=== PATIENT | female | born 1995 | race Caucasian/White ===

== ENCOUNTER 2020-03-19 16:39 | Emergency (ER) | payer OTHER, SELFPAY ==
--- NOTE | 2020-03-19 16:43 | ED.GENADULT ---
HPI - General Adult General Stated complaint: Dizziness/Disoreiented Time Seen by Provider: 03/19/20 16:43 Source: patient Mode of arrival: ambulatory Limitations: no limitations Related Data Allergies Allergy/AdvReac Type Severity Reaction Status Date / Time No Known Allergies Allergy Verified 03/07/19 09:37 Review of Systems Review of Systems: Narrative: CONSTITUTIONAL: Denies fever, chills, or sweats. EYES: Denies visual changes, redness, or discharge. ENT: Denies rhinorrhea, congestion, sore throat, or otalgia. CARDIOVASCULAR: Denies chest pain, palpitations, or edema. RESPIRATORY: Denies cough or dyspnea. GASTROINTESTINAL: Denies abdominal pain, nausea, vomiting, or diarrhea. GENITOURINARY: Denies dysuria or hematuria. SKIN: Denies rash or itching. MUSCULOSKELETAL: Denies back pain, joint pain, or myalgia. NEUROLOGIC: Denies headache, numbness, or weakness. PSYCHIATRIC: Denies anxiety or depression. PMFSH Comments At the time of my signature I agree with nursing past medical history, surgical, social, and family history. There is no relevant family history pertinent to the presenting complaint. Exam Narrative: Exam Narrative: GENERAL: Well-appearing, well-nourished, and in no acute distress. HEAD: Normocephalic, atraumatic. EYES: PERRLA and EOMI. ENT: Nares clear, no rhinorrhea or epistaxis. Mucous membranes moist. NECK: Supple. No lymphadenopathy CHEST: Clear to auscultation. No respiratory distress. HEART: Regular rate and rhythm. No murmur heard. Normal peripheral pulses. ABDOMEN: Soft, nontender, nondistended, normal active bowel sounds. EXTREMITIES: Normal range of motion. No edema. SKIN: Warm, dry, no rash. NEURO: No focal deficits. Alert and oriented x3. Course Vital Signs Vital signs: Vital signs reviewed. Medical Decision Making Differential Diagnosis Differential Diagnosis: Differential diagnosis: Critical Care Time Critical Care Time Critical Care Time: No Discharge Plan Discharge Prescriptions: No Action benzonatate [Tessalon Perles] 100 mg capsule 100 mg PO TID PRN (Reason: cough) Qty: 20 RF: 0 methylprednisolone [Medrol (Poncho)] 4 mg tablets,dose pack See Rx Instructions .ROUTE .COMPLEX Qty: 21 RF: 0 albuterol sulfate 90 mcg/actuation HFA aerosol inhaler 2 puff INHALATION QID PRN (Reason: shortness of breath or wheezing) Qty: 8 RF: 0
== END 2020-03-19 16:55 | disposition left against medical advice (07) ==
LOC: EXPBETH 16:47
PROVIDERS: Emergency Provider Nurse Practitioner Family
DX: Z53.21 Procedure and treatment not carried out due to patient leaving prior to being seen by health care provider (principal)
CPT/HCPCS: 99199

== ENCOUNTER 2020-12-28 19:10 | Emergency (ER) | payer OTHER, SELFPAY ==
[2020-12-28 19:16] VITALS: BP 123/76; PULSE 98; RESP 18; TEMP 37.4; O2SAT 100
--- NOTE | 2020-12-28 19:28 | ED.URI ---
HPI - URI/Sore Throat General Chief Complaint: Upper Respiratory Infection Stated Complaint: Sore Throat, Congestion, irritated Eyes Time Seen by Provider: 12/28/20 19:28 Source: patient and RN notes reviewed History of Present Illness HPI Narrative: Patient is a 25-year-old female who presents the urgent care with complaints of bilateral eye irritation, sore throat and congestion. Patient states it started about 4 5 days ago. States that she has not had a Covid vaccine but she has not worried about Covid because she does not leave her house . Patient denies of any fever, nausea, vomiting. Denies of any use of rhqj-eek-kqormrd medication for symptoms. No other acute complaints. No acute distress noted. Patient read the plan of care. Some parts of this dictation were generated by voice recognition software and may contain typographical and/or grammatical inaccuracies. Related Data Allergies Allergy/AdvReac Type Severity Reaction Status Date / Time No Known Allergies Allergy Verified 12/28/20 19:31 Review of Systems Review of Systems: CONSTITUTIONAL: Denies fever, chills, or sweats. EYES: Reports of bilateral eye irritation and drainage ENT: Reports of nasal congestion, sore throat CARDIOVASCULAR: Denies chest pain, palpitations, or edema. RESPIRATORY: Denies cough or dyspnea. GASTROINTESTINAL: Denies abdominal pain, nausea, vomiting, or diarrhea. GENITOURINARY: Denies dysuria or hematuria. SKIN: Denies rash or itching. MUSCULOSKELETAL: Denies back pain, joint pain, or myalgia. NEUROLOGIC: Denies headache, numbness, or weakness. All other systems reviewed are negative, except as documented in HPI. PMFSH Comments At the time of my signature, I reviewed and agree with the nursing past medical, surgical, social, and family history. There is no relevant family history pertinent to the patient complaint. Exam Narrative: GENERAL: This is a well-nourished, well-developed patient, in no apparent distress. HEAD: normocephalic, atraumatic. EYES: PERRL. Sclera clear/white. Vision is grossly intact. Mild bilateral injected conjunctiva with scant yellow discharge/matting EARS: External ears normal, auditory canals clear and without drainage, TMs normal without perforation. Hearing grossly intact. NOSE: External nose normal with no obvious nasal discharge, nares without redness, clear rhinorrhea. THROAT: Mucous membranes moist. Mild postnasal drainage with moderate erythema noted posterior oropharynx without exudate or ulceration. NECK: Neck supple CARDIOVASCULAR: Regular rate and rhythm without murmurs, gallops, or rubs. RESPIRATORY: Clear to auscultation. Breath sounds equal bilaterally. No wheezes, rales, or rhonchi. SKIN: warm, intact with no suspicious lesions or rash, good texture and turgor. NEURO: awake, alert, and oriented to person, place and time. There were no obvious focal neurologic abnormalities. EXTREMITIES: No clubbing, cyanosis, or edema. Course Vital Signs Vital signs: Vital Signs Temperature 99.3 F 12/28/20 19:16 Pulse Rate 98 12/28/20 19:16 Respiratory Rate 18 12/28/20 19:16 Blood Pressure 123/76 12/28/20 19:16 Pulse Oximetry 100 12/28/20 19:16 Temperature 99.3 F 12/28/20 19:16 Pulse Rate 98 12/28/20 19:16 Respiratory Rate 18 12/28/20 19:16 Blood Pressure 123/76 12/28/20 19:16 Pulse Oximetry 100 12/28/20 19:16 Reviewed MDM - URI/Sore Throat MDM Narrative Medical decision making narrative: Reviewed lab results with the patient. She is aware that strep swab was negative. Educated patient on culture and we will call within 72 hours if culture is positive and antibiotics are necessary. Advised the patient to use an xozd-zua-kjzlqut antihistamine such as Claritin/Zyrtec/Benadryl in conjunction with Flonase nasal spray. Do not sleep with the windows open or a fan on. Use a humidifier at night. Use Tylenol/ibuprofen as needed. Use eyedrops to bilateral eyes, wiping the appli
== END 2020-12-28 19:40 | disposition home or self-care (01) ==
PROVIDERS: Emergency Provider Nurse Practitioner Family
DX: J02.9 Acute pharyngitis, unspecified (principal); H10.33 Unspecified acute conjunctivitis, bilateral
CPT/HCPCS: 87081; 87880; 99213; G0463

== ENCOUNTER 2021-09-07 10:40 | Emergency (ER) | payer OTHER, SELFPAY ==
[2021-09-07 10:45] VITALS: BP 111/81; PULSE 120; RESP 16; TEMP 37; O2SAT 98
--- NOTE | 2021-09-07 12:08 | ED.SKABFB ---
HPI - Skin/Abscess/Foreign Bdy General Chief complaint: Skin/Abscess/Foreign Body Stated complaint: rash on face Time Seen by Provider: 09/07/21 12:09 Source: patient and RN notes reviewed Mode of arrival: ambulatory Limitations: no limitations History of Present Illness HPI narrative: 26-year-old female presents with concern for rash. She reports she was treated for poison hcan several weeks ago with a steroid taper. Reports the rash resolved, however 2 days after she is the steroid she began having a rash again. She reports her original rash was pretty severe, causing scarring as it healed. She reports this current rash is itchy, is currently on her face, neck, abdomen. Reports she has been using topical Benadryl cream without relief. She denies fullness, swollen tongue breathing. MD complaint: rash Related Data Allergies Allergy/AdvReac Type Severity Reaction Status Date / Time No Known Allergies Allergy Verified 09/07/21 11:14 Review of Systems Review of Systems: CONSTITUTIONAL: Denies malaise, chills, sweats, or fever. EYES: Denies redness, or discharge. ENT: Denies rhinorrhea, congestion, swollen lips, swollen tongue CARDIOVASCULAR: Denies chest pain, palpitations, or edema. RESPIRATORY: Denies cough or dyspnea. GASTROINTESTINAL: Denies abdominal pain, nausea, vomiting SKIN: Reports itchy rash on her neck, face, abdomen MUSCULOSKELETAL: Denies joint pain or myalgia. NEUROLOGIC: Denies headache. All systems reviewed & are unremarkable except as noted in HPI and below PMFSH Comments At time of signature, agree with nursing past medical, surgical, social and family history. There is no relevant family history pertinent to the presenting complaint Exam Narrative: GENERAL: Well-appearing, well-nourished, and in no acute distress. HEAD: Normocephalic, atraumatic. EYES: PERRLA, conjunctivae clear, and EOMI. ENT: Mucous membranes moist. Oropharynx without edema, erythema or lesions. NECK: Supple. No lymphadenopathy CHEST: Clear to auscultation. No respiratory distress. HEART: Regular rate and rhythm. SKIN: Warm, dry. Patches of erythematous papules and erythematous plaque without vesicles noted to the face, neck, abdomen NEURO: Alert and oriented x3. PSYCH: Normal mood and affect Course Course Emergency Course: Patient is aware of diagnosis, understands and agrees to treatment plan. Anticipatory guidance given. Patient agrees to follow-up as directed and is aware of reasons to seek care at the emergency department. Portions of this record may have been created with voice recognition software Level of Care: Express Care Visit Vital Signs Vital signs: Vital Signs Temperature 98.6 F 09/07/21 10:45 Pulse Rate 120 H 09/07/21 10:45 Respiratory Rate 16 09/07/21 10:45 Blood Pressure 111/81 09/07/21 10:45 Pulse Oximetry 98 09/07/21 10:45 Oxygen Delivery Room Air 09/07/21 10:45 Temperature 98.6 F 09/07/21 10:45 Pulse Rate 120 H 09/07/21 10:45 Respiratory Rate 16 09/07/21 10:45 Blood Pressure 111/81 09/07/21 10:45 Pulse Oximetry 98 09/07/21 10:45 Oxygen Delivery Room Air 09/07/21 10:45 Reviewed. MDM - Skin/Abscess/Foreign Bdy MDM Narrative Medical decision making narrative: Does not appear at this time to be erythema multiforme, bullous, SJS, TEN; no evidence at this time to suggest RMSF, endocarditis or Lyme disease; patient looks well, nontoxic and is tolerating oral intake; no neurologic signs or symptoms; no headache, photophobia or neck pain; afebrile; appropriate for initial outpatient treatment; discussed the importance of follow-up, patient agrees; question, viral exanthema, contact dermatitis, allergic dermatitis, eczema, urticaria, tinea, shingles. No soft palate or uvula edema, no tongue, lip edema or other mucosal involvement, no respiratory compromise, no stridor, no wheezing, no wheezing, no history of syncope, no hypotension, no nausea, vomiting, or diarrhea. I
== END 2021-09-07 12:21 | disposition home or self-care (01) ==
PROVIDERS: Emergency Provider Nurse Practitioner
DX: L24.7 Irritant contact dermatitis due to plants, except food (principal)
CPT/HCPCS: 99213; G0463

== ENCOUNTER 2021-10-05 13:38 | Emergency (ER) | payer OTHER, SELFPAY ==
--- NOTE | 2021-10-05 13:40 | ED.SKABFB ---
HPI - Skin/Abscess/Foreign Bdy General Chief complaint: Skin/Abscess/Foreign Body Stated complaint: Rash Time Seen by Provider: 10/05/21 13:40 Source: patient and RN notes reviewed History of Present Illness HPI narrative: Patient is a 26-year-old female who presents the urgent care with complaints of a rash of the chest, bilateral arms and knees. Patient states its been ongoing for over 1 month and she has been seen in the emergency room and at our facility for the same issue. Patient states that when she stops taking the steroid the rash comes right back. Patient had been using the triamcinolone up until yesterday however she misplaced it. Patient has been using Benadryl cream without much relief. Denies of any new medications, detergents, creams or lotions. No one else in the home has the rash. No other acute complaints. No acute distress noted. Patient plan of care. Some parts of this dictation were generated by voice recognition software and may contain typographical and/or grammatical inaccuracies. Related Data Allergies Allergy/AdvReac Type Severity Reaction Status Date / Time No Known Allergies Allergy Verified 10/05/21 13:56 Review of Systems Review of Systems: CONSTITUTIONAL: Denies fever, chills, or sweats. EYES: Denies visual changes, redness, or discharge. ENT: Denies rhinorrhea, congestion, sore throat, or otalgia. CARDIOVASCULAR: Denies chest pain, palpitations, or edema. RESPIRATORY: Denies cough or dyspnea. GASTROINTESTINAL: Denies abdominal pain, nausea, vomiting, or diarrhea. GENITOURINARY: Denies dysuria or hematuria. SKIN: Reports of an itchy inflamed rash to the chest, bilateral arms and knees MUSCULOSKELETAL: Denies back pain, joint pain, or myalgia. NEUROLOGIC: Denies headache, numbness, or weakness. All other systems reviewed are negative, except as documented in HPI. PMFSH Comments At the time of my signature, I reviewed and agree with the nursing past medical, surgical, social, and family history. There is no relevant family history pertinent to the patient complaint. Exam Narrative: GENERAL: This is a well-nourished, well-developed patient, in no apparent distress. HEAD: normocephalic, atraumatic. EYES: PERRL. Sclera clear/white. Vision is grossly intact. EARS: External ears normal NOSE: External nose normal with no obvious nasal discharge, nares without redness, no rhinorrhea. THROAT: Mucous membranes moist NECK: Neck supple CARDIOVASCULAR: Regular rate and rhythm without murmurs, gallops, or rubs. RESPIRATORY: Clear to auscultation. Breath sounds equal bilaterally. No wheezes, rales, or rhonchi. SKIN: Raised rough erythemic papular dermatitis noted to the chest, bilateral upper arms and bilateral knees. Warm, intact with no suspicious lesions or rash, good texture and turgor. NEURO: awake, alert, and oriented to person, place and time. There were no obvious focal neurologic abnormalities. EXTREMITIES: No clubbing, cyanosis, or edema. Course Course Level of Care: Express Care Visit Vital Signs Vital signs: Vital Signs Temperature 99.1 F 10/05/21 13:46 Pulse Rate 94 10/05/21 13:46 Respiratory Rate 16 10/05/21 13:46 Blood Pressure 124/81 10/05/21 13:46 Pulse Oximetry 99 10/05/21 13:46 Oxygen Delivery Room Air 10/05/21 13:46 Temperature 99.1 F 10/05/21 13:46 Pulse Rate 94 10/05/21 13:46 Respiratory Rate 16 10/05/21 13:46 Blood Pressure 124/81 10/05/21 13:46 Pulse Oximetry 99 10/05/21 13:46 Oxygen Delivery Room Air 10/05/21 13:46 Reviewed MDM - Skin/Abscess/Foreign Bdy MDM Narrative Medical decision making narrative: Advised patient to use the prescription cream to the affected areas avoiding near the groin, eyes and underarms. Use Benadryl and Pepcid every 12 hours to help decrease the spread of the rash and inflammation. Complete the oral antibiotic regimen as prescribed and stay out of the sun while taking it. sure to eat and drink
[2021-10-05 13:46] VITALS: BP 124/81; PULSE 94; RESP 16; TEMP 37.3; O2SAT 99
== END 2021-10-05 14:11 | disposition home or self-care (01) ==
PROVIDERS: Emergency Provider Nurse Practitioner Family
DX: L25.9 Unspecified contact dermatitis, unspecified cause (principal)
CPT/HCPCS: 99213; G0463

== ENCOUNTER 2021-10-26 18:56 | Emergency (ER) | payer OTHER, SELFPAY ==
[2021-10-26 19:00] VITALS: BP 141/70; PULSE 103; RESP 20; TEMP 37.2; O2SAT 100
--- NOTE | 2021-10-26 19:16 | ED.UPPEXIN ---
HPI - Extremity Injury (Upper) General Chief Complaint: Extremity Injury, Upper Stated Complaint: Right Wrist Pain Time Seen by Provider: 10/26/21 19:06 Source: patient and RN notes reviewed History of Present Illness HPI narrative: Patient is a 26-year-old female who presents the urgent care with complaints of right wrist pain. Patient states is been ongoing for approximately 2 months and denies of any trauma or injury. Patient states in the last 3 or 4 days she has had increased pain. Patient states she works for [employer] and just recently started a new job with [employer] . Patient states that she has taken ibuprofen for the pain. Patient is right-hand dominant. No other acute complaints. No acute distress noted. Patient aware of the plan of care. Some parts of this dictation were generated by voice recognition software and may contain typographical and/or grammatical inaccuracies. Related Data Home Medications Medication Instructions Recorded Confirmed No Home Medications 10/26/21 10/26/21 Allergies Allergy/AdvReac Type Severity Reaction Status Date / Time No Known Allergies Allergy Verified 10/26/21 19:06 Review of Systems Review of Systems: CONSTITUTIONAL: Denies fever, chills, or sweats. EYES: Denies visual changes, redness, or discharge. ENT: Denies rhinorrhea, congestion, sore throat, or otalgia. CARDIOVASCULAR: Denies chest pain, palpitations, or edema. RESPIRATORY: Denies cough or dyspnea. GASTROINTESTINAL: Denies abdominal pain, nausea, vomiting, or diarrhea. GENITOURINARY: Denies dysuria or hematuria. SKIN: Denies rash or itching. MUSCULOSKELETAL: Reports of right wrist pain NEUROLOGIC: Denies headache, numbness, or weakness. All other systems reviewed are negative, except as documented in HPI. PMFSH Comments At the time of my signature, I reviewed and agree with the nursing past medical, surgical, social, and family history. There is no relevant family history pertinent to the patient complaint. Exam Narrative: GENERAL: This is a well-nourished, well-developed patient, in no apparent distress. HEAD: normocephalic, atraumatic. EYES: PERRL. Sclera clear/white. Vision is grossly intact. EARS: External ears normal NOSE: External nose normal with no obvious nasal discharge, nares without redness, no rhinorrhea. THROAT: Mucous membranes moist NECK: Neck supple CARDIOVASCULAR: Regular rate and rhythm without murmurs, gallops, or rubs. RESPIRATORY: Clear to auscultation. Breath sounds equal bilaterally. No wheezes, rales, or rhonchi. SKIN: warm, intact with no suspicious lesions or rash, good texture and turgor. NEURO: awake, alert, and oriented to person, place and time. There were no obvious focal neurologic abnormalities. EXTREMITIES: No obvious edema, erythema or ecchymosis noted to the right wrist. Range of motion within normal limits with normal flexion and rotation. Positive strong right radial pulse with capillary refill less than 2 seconds. Course Course Level of Care: Express Care Visit Vital Signs Vital signs: Vital Signs Temperature 99.0 F 10/26/21 19:00 Pulse Rate 103 H 10/26/21 19:00 Respiratory Rate 20 10/26/21 19:00 Blood Pressure 141/70 H 10/26/21 19:00 Pulse Oximetry 100 10/26/21 19:00 Oxygen Delivery Room Air 10/26/21 19:00 Temperature 99.0 F 10/26/21 19:00 Pulse Rate 103 H 10/26/21 19:00 Respiratory Rate 20 10/26/21 19:00 Blood Pressure 141/70 H 10/26/21 19:00 Pulse Oximetry 100 10/26/21 19:00 Oxygen Delivery Room Air 10/26/21 19:00 Reviewed-patient is informed that they may have pre-hypertension or hypertension based on a blood pressure reading in the department. I recommend the patient call the primary care provider listed on their discharge instructions or a physician of their choice this week to arrange follow-up for further evaluation of possible pre-hypertension or hypertension. MDM - Extremity Injury (Upper)
== END 2021-10-26 19:24 | disposition home or self-care (01) ==
PROVIDERS: Emergency Provider Nurse Practitioner Family
DX: M77.9 Enthesopathy, unspecified (principal)
CPT/HCPCS: 99212; G0463

== ENCOUNTER 2023-02-22 15:42 | Emergency (ER) | payer OTHER, SELFPAY ==
[2023-02-22 15:57] VITALS: BP 137/71; PULSE 115; RESP 20; TEMP 36.9; O2SAT 100
--- NOTE | 2023-02-22 16:52 | ED.URI ---
HPI - URI/Sore Throat General Chief Complaint: Upper Respiratory Infection Stated Complaint: Headache and Drainage Time Seen by Provider: 02/22/23 16:50 Source: patient, RN notes reviewed and old records reviewed Mode of arrival: ambulatory Limitations: no limitations History of Present Illness HPI Narrative: 27 year old female who presents to [facility] care with complaints of 6 days of sinus congestion and drainage,nausea, post nasal drainage with initial white drainage which has now turned to greenish tinged. 3 weeks ago was treated for dental abscess of her right upper molar with some continued swelling and pain to her right cheek. Patient reports headache pain frontal area. Patient reports that she has been taking Naproxen and also some left over antibiotics 2 doses for her symptoms. #4 molar broken and many decayed surrounding teeth with some redness to gum near tooth. MD elicited complaint: rhinorrhea, nasal congestion, sinus pain and other (right cheek and possible dental abscess.) Pertinent past history: other (dental problems, tobacco use) Onset (ago): day(s) (6) Consistency: constant Severity: severe Pain scale (0-10): 9 Able to tolerate fluids by mouth: Yes Treatments prior to arrival: other (Naproxen and 2 doses of left over antibiotics.) Related Data Allergies Allergy/AdvReac Type Severity Reaction Status Date / Time No Known Allergies Allergy Verified 02/22/23 16:45 Review of Systems Review of Systems: CONSTITUTIONAL: Denies malaise, chills, sweats, or fever. EYES: Denies visual changes, redness, or discharge. ENT: Reports rhinorrhea, congestion, sinus pain, no otalgia and no sore throat, positive for right cheek pain and #4 tooth broken off with many surrounding caries noted some redness to gum near #4 tooth. CARDIOVASCULAR: Denies chest pain, palpitations, or edema. RESPIRATORY: Reports no acute cough.? Denies dyspnea. GASTROINTESTINAL: Denies abdominal pain, positive for nausea,no vomiting, no diarrhea SKIN: Denies rash or itching. MUSCULOSKELETAL: Denies myalgia. NEUROLOGIC: Reports headache. All systems reviewed & are unremarkable except as noted in HPI and below PMFSH Past Medical History Medical History Anxiety History of dental problems Social History Social History Smoking packs per day: 0.5 Smoking cigarettes per day: 10.0 Years smoked: 15 Smoking pack-years: 7.50 Smoking status: Current every day smoker Alcohol intake: former Substance use type: marijuana Other substance usage details: occasional Living arrangements: with family Gender identity (if verbalized by the patient): Female Comments At time of signature, agree with nursing past medical, surgical, social and family history. There is no relevant family history pertinent to the presenting complaint Exam Narrative: GENERAL: Well-appearing, well-nourished, and in no acute distress. HEAD: Normocephalic EYES: PERRLA, conjunctivae clear ENT: Nares clear, turbinates edematous and erythematous, yellowish greenish discharge. frontal headache.Mucous membranes moist. TM pearly cruz with dull light reflex bilaterally; no tragal tenderness. Oropharynx erythematous without lesions. Tonsils not enlarged and without exudate, no drooling, no hoarseness, no trismus, uvula midline.#4 tooth broken off with surrounding dental caries some gum redness pf gum above #4 tooth and also some right cheek pain NECK: Supple. No lymphadenopathy CHEST: Clear to auscultation, breath sounds equal. No wheezing, rhonchi, rales, or stridor. No respiratory distress, speaks in full sentences.SAO2 100% on room air HEART: Regular rate and rhythm. No murmur heard. SKIN: Warm, dry, no rash. NEURO: Alert and oriented x3. PSYCH: Normal mood and affect Course Course Emergency Course: Patient is aware of diagnosis
== END 2023-02-22 17:15 | disposition home or self-care (01) ==
PROVIDERS: Emergency Provider Registered Nurse; PCP Hospitalist
DX: K04.7 Periapical abscess without sinus (principal); J06.9 Acute upper respiratory infection, unspecified; F17.210 Nicotine dependence, cigarettes, uncomplicated
CPT/HCPCS: 99213; G0463

== ENCOUNTER 2024-10-31 17:34 | Emergency (ER) | payer OTHER, SELFPAY ==
--- OUTSIDE RECORDS SUMMARY | 2024-10-31 17:36 | XMS_ITS | Referral Summary ---
Author Organization [facility]Care Care Team Providers Care Field Technical Assistant Name Role Phone No, Physician Primary Care Provider [phone] Allergies Active Allergy Reactions Criticality Noted Date Comments Codeine Vomiting Low Medications PNV 16-iron fum,ps-folic-om eg3 35-1-200 mg capsule Take 1 tablet by mouth daily. Active predniSONE (DELTASONE) 20 mg tablet Take 3 tablets per day for 5 days, then 2 tablets per day for 3 days, then 1 tablet per day for 3 days, then half tablet per day for 3 days, then stop 26 tablet 2 Active hydrocortisone 2.5 % cream Apply topically 2 (two) times a day 30 g 3 Active cetirizine (ZyrTEC) 10 mg tablet Take 1 tablet (10 mg total) by mouth daily as needed for allergies 30 tablet 3 Active Active Problems Problem Noted Date Diagnosed Date History of IUFD 10/31/2017 Overview (10/31/2017): - Pt had an IUFD in 2012 at 31 weeks gestation.Noted mild abdominal cramping and abdominal pain while at work, upon admission to the ED diagnosed with IUFD. - Pathology showed multiple placental infarcts. No other records available. Will attempt to obtain records from primary OB if further testing was done. - Will send for [facility]PL[facility] labs today. Will need repeat testing at 12 weeks to confirm diagnosis if positive. - Recommend initiating screening at 28 weeks - Recommend serial growth scans q4 weeks starting at 24 weeks Smoking (tobacco) complicating , second trimester 10/31/2017 Overview (10/31/2017): - Pt has a 10 year history of smoking. Currently reports smoking <1 pack per day and is interested in quitting smoking. Counseled on risks in . Will set goals and continue to work on decreasing cigarette and MJ use. Patient declines assistance in cessation at this time. Supervision of high-risk , second trime ster 10/31/2017 Overview (10/31/2017): - labs up to date through primary OB (Pap neg (08/02), UDS +MJ, HepB neg, RPR NR, RI, B-, Ab neg, HIV-. GC/CT --, 37.2/12.3, plt 404) - Continue routine care with primary OB - Re-discussed genetic screening for current , patient declines Impacted cerumen 05/13/2014 Overview (07/22/2016): Cerumen impaction Social History Tobacco Use Types Packs/Day Years Used Date Smoking Tobacco: Every Day Cigarettes 0.5 9 Smokeless Tobacco: Never Tobacco Cessation:Ready to Q uit: Yes; Counseling Given: Yes Alcohol Use Standard Drinks/Week Comments Yes 0 (1 standard drink = 0.6 oz pur e alcohol) not during Personal Safety Answer Date Recorded Getting School Help Needed Not on file 12/24 Comments No Sex and Gender Information Value Date Recorded Sex Assigned at Not on file Legal Sex Female 6:01 PM [employer] Gender Identity Not on file Sexual Orientation Not on file Last Filed Vital Signs Vital Sign Reading Time Taken Comments Blood Pressure 110/80 12/14/2022 2:31 AM CDT Pulse 88 12/14/2022 2:31 AM CDT Temperature 36.7 C (98 F) 12/14/2022 2:31 AM CDT Respiratory Rate 18 12/14/2022 2:31 AM CDT Oxygen Saturation 100% 12/14/2022 2:31 AM CDT Inhaled Oxygen Concentration - - Weight 63.5 kg (140 lb) 12/14/2022 2:31 AM CDT Height 152.4 cm (5') 12/14/2022 2:31 AM CDT Body Mass Index 27.34 12/14/2022 2:31 AM CDT Plan of Treatment Not on file [facility] [place] [facility] Advance Directives For more information, please contact: [phone] * Full Code (Latest Code Status on File) Date Activated Date Inactivated Comments 02/21/2018 10:27 PM 02/23/2018 5:46 PM * Full Code Date Activated Date Inactivated Comments 02/21/2018 10:26 PM 02/21/2018 10:27 PM Full CPR i n case of cardiopulmonary arrest * Full Code Date Activated Date Inactivated Comments 02/21/2018 3:49 AM 02/21/2018 10:26 PM Full CPR in case of cardiopulmonary arrest Care Teams Field Technical Assistant Relationship Specialty Start Date End Date No, Physician PCP - General 09/14/17
--- OUTSIDE RECORDS SUMMARY | 2024-10-31 17:36 | XMS_ITS | Data Portability ---
Author Organization [facility] Address [address] [place] [address] Care Team Providers Care Night Shift Supervisor Name Role Phone TYSON SELF Rn House Supervisor Assessment Encounter Date Assessment Date Assessment LastModified by Organization Details LastModified Time 01/22/2018 01/22/2018 34 4/7 weeks doing well, weekly NSTs for stillbirth hx. GBS and TDAP today.weekly visists Not available 01/22/2018 14:54:14 02/01/2018 02/01/2018 36 weeks doing well, cervix check next time Not available 02/01/2018 14:57:36 02/12/2018 02/12/2018 37 weeks doing well. weekly nsts continue Not available 02/12/2018 12:15:00 02/19/2018 02/19/2018 38 weeks doing well, plan induction this Monday Not available 02/19/2018 11:08:46 Plan of Treatment Reminders Order Date Submit Date Provider Last Modified By Organization Details Last Modified Time Details Appointments None recorded. Lab urinalysis, dipstick 2023 [facility] In-Office Order, Internal Use Only DO Not Attach Compendium DO Not Attach Compendium, Do Not Delete/merge, [id number] 16:54:12 culture, urine 2023 024 [facility], [address] [place] [address], [place], [address], 06:17:36 vaginal pathogens panel, NUPUR+probe, vaginal fluid 2023 024 [facility], [address], [place], [address], 06:17:34 HIV 1 + 2, meaningful use set 2023 [facility], [address], [place], [address], 15:17:42 RPR (rapid plasma reagin), serum 2023 [facility], [address], [place], [address], 15:17:41 Hepatitis C IgG Ab, qual, serum 2023 [facility], [address], [place], [address], 15:17:37 HBsAg (hepatitis B surface Ag), EIA, serum 2023 [facility], [address], [place], [address], 15:17:40 chlamydia trachomatis + neisseria gonorrhoeae rRNA panel, NUPUR+probe, nasopharynx 2023 024 [facility], [address], [place], [address], 15:17:38 herpes simplex virus 1 + 2 DNA panel, NUPUR+probe, unspecified specimen - source: vaginal swab 2023 [facility], [address], [place], [address], 06:18:46 urinalysis, dipstick 2017 018 In-Office Order, Internal Use Only DO Not Attach Compendium DO Not Attach Compendium, Do Not Delete/merge, [id number] 8 11:08:47 urinalysis, dipstick 2017 018 In-Office Order, Internal Use Only DO Not Attach Compendium DO Not Attach Compendium, Do Not Delete/merge, [id number] 8 12:15:01 urinalysis, dipstick 2017 018 In-Office Order, Internal Use Only DO Not Attach Compendium DO Not Attach Compendium, Do Not Delete/merge, [id number] 8 14:57:37 culture, vaginal/rec rajat, streptococc us group B 2017 [facility], [address] [place] [address], [address], [address], 8 16:22:57 urinalysis, dipstick 2017 018 In-Office Order, Internal Use Only DO Not Attach Compendium DO Not Attach Compendium, Do Not Delete/merge, [id number] 8 14:47:38 Referral None recorded. Procedures None recorded. Surgeries None recorded. Imaging None recorded. Medication Orders Macrobid 100 mg capsule 2023 [id number], [address] [place], [place], [id number], 4 16:36:23 acyclovir 400 mg tablet 2023 [id number], [address] [place], [place], [id number], 4 12:36:01 Patient TargetsNo targets recorded. Patient Instructions Encounter Date Encounter Id Patient Instructions Last Modified By Organization Details Last Modified Time 01/22/2018 [id number] tetanus and diphtheria booster: care instructions Not available 01/22/2018 14:47:35 01/23/2024 [id number] Urinary Tract Infection (UTI) in Women: Care Instructions [email or web address] Not available 01/23/2024 16:25:10 genital herpes: care instructions [email or web address] Not available 01/23/2024 16:25:39 safer sex: care instructions [email or web address] Not available 01/23/2024 16:25:39 exposure to sexually transmitted infections: care instructions [email or web address] Not available 01/23/2024 16:25:39 Plan of care has been discussed with patient including expected therapeutic benefits and potential side effects of prescribed medication and treatments. Patient verbalizes understanding and is in agreement with the plan of care. Patient was instructed to keep all scheduled appointments and contact the clinic for any additional problems. [email or web address] Not available 01/24/2024 12:32:27 Reason for Referral None Reported. Results Created Date Observation Date Name Description Value Unit Range Abnormal Flag Note LastModifiedBy Organization Detail LastModifiedTime 02/20/20 18 02/19/2018 urina lysis , dipst ick Protein Negati ve Not Available In-Office Order Internal Use Only DO Not Attach Compendium DO Not Attach Compendium, Do Not Delete/merge, [id number] 02/19/2018 10:55:12 02/20/20 18 02/19/2018 urina lysis , dipst ick pH 8.0 Not Available In-Office Order Internal Use Only DO Not Attach Compendium DO Not Attach Compendium, Do Not Delete/merge, [id number] 02/19/2018 10:55:12 02/20/20 18 02/19/2018 urina lysis , dipst ick Glucose Negati ve Not Available In-Office Order Internal Use Only DO Not Attach Compendium DO Not Attach Compendium, Do Not Delete/merge, [id number] 02/19/2018 10:55:12 02/13/20 18 02/12/2018 urina lysis , dipst ick Protein Trace Not Available In-Office Order Internal Use Only DO Not Attach Compendium DO Not Attach Compendium, Do Not Delete/merge, [id number] 02/12/2018 12:01:51 02/13/20 18 02/12/2018 urina lysis , dipst ick Glucose Negati ve Not Available In-Office Order Internal Use Only DO Not Attach Compendium DO Not Attach Compendium, Do Not Delete/merge, [id number] 02/12/2018 12:01:51 10/08/20 18 01/22/2018 urina lysis , dipst ick Protein Trace Not Available In-Office Order Internal Use Only DO Not Attach Compendium DO Not Attach Compendium, Do Not Delete/merge, [id number] 01/22/2018 14:39:05 01/23/20 18 01/22/2018 urina lysis , dipst ick Glucose Negati ve Not Available In-Office Order Internal Use Only DO Not Attach Compendium DO Not Attach Compendium, Do Not Delete/merge, [id number] 01/22/2018 14:39:05 01/09/20 18 01/08/2018 urina lysis , dipst ick Protein Negati ve Not Available In-Office Order Internal Use Only DO Not Attach Compendium DO Not Attach Compendium, Do Not Delete/merge, [id number] 01/08/2018 11:08:33 01/09/20 18 01/08/2018 urina lysis , dipst ick Glucose Negati ve Not Available In-Office Order Internal Use Only DO Not Attach Compendium DO Not Attach Compendium, Do Not Delete/merge, [id number] 01/08/2018 11:08:33 12/26/19 18 12/25/2017 gluco se silvia ance test, 4 speci mens note: Commen t For diagn osis of gesta marycruz l diabe champ, at least two value s must meet or excee d rocael l limit s, which is based on 100 gm of oral gluco se chall enge. Not Available [facility] ([facility]) [address] [place], [address], 12/26/2017 06:19:06 12/26/19 18 12/26/2017 gluco se silvia ance test, 4 speci mens glucose - fasting 95 mg/dL 65-94 above high normal Not Available [facility] ([facility]) [address] [place], [address], 12/26/2017 06:19:06 12/26/19 18 12/26/2017 gluco se silvia ance test, 4 speci mens glucose - 1 hour 211 mg/dL 65-179 above high normal Not Available [facility] ([facility]) [address] [facility], [place], [address], 12/26/2017 06:19:06 12/26/19 18 12/26/2017 gluco se silvia ance test, 4 speci mens glucose - 2 hour 160 mg/dL 65-154 above high normal Not Available [facility] ([facility]) [address] [place], [address], 12/26/2017 06:19:06 12/26/19 18 12/26/2017 gluco se silvia ance test, 4 speci mens glucose - 3 hour 61 mg/dL 65-139 below low normal Not Available [facility] ([facility]) [address] [facility], [place], [address], 12/26/2017 06:19:06 01/23/20 18 01/24/2018 cultu re, vagin al/re ctal, strep tococ cus group B strep gp B NUPUR Negati ve negati ve Cente rs for Disea se Contr ol and Preve ntion (CDC) and Ameri can Congr ess of Obste trici ans and Gynec ologi sts (ACOG ) guide lines for preve ntion of perin atal group B strep tococ pebbles (GBS) disea se speci fy co-co llect ion of a vagin al and recta l swab speci men to maxim ize sensi tivit y of GBS detec tion. Per the CDC and ACOG, swabb ing both the lower vagin a and rectu m subst antia lly incre ases the yield of detec tion joselo red with sampl ing the vagin a alone . Penic illin G, ampic illin , or cefaz demario are indic ated for intra partu m proph ylaxi s of perin atal GBS colon izati on. Refle x susce ptibi lity testi ng shoul d be perfo rmed prior to use of clind amyci n only on GBS isola champ from penic illin -kitty rgic women who are consi dered a high risk for anaph ylaxi s. Treat ment with vanco mycin witho ut addit ional testi ng is adrianna nted if resis tance to clind amyscott n is noted . Not Available [facility] ([facility]) [address] [facility], [place], [address], 01/24/2018 16:22:57 02/02/20 18 02/01/2018 urina lysis , dipst ick Protein Trace Not Available In-Office Order Internal Use Only DO Not Attach Compendium DO Not Attach Compendium, Do Not Delete/merge, [id number] 02/01/2018 14:43:47 01/23/2001/24/2024 NUSWA B VAGIN ITIS PLUS (VG+) atopobium vaginae LOW - 0 score Not Available [facility] ([facility]) [address] [facility], [place], [address], 01/25/2024 06:17:34 01/23/2001/24/2024 NUSWA B VAGIN ITIS PLUS (VG+) bvab 2 LOW - 0 score Not Available [facility] ([facility]) [address] [facility], [place], [address], 01/25/2024 06:17:34 01/23/2001/24/2024 NUSWA B VAGIN ITIS PLUS (VG+) megasphaera 1 LOW - 0 score Calcu late total score by suzanne todd the 3 indiv idual bacte rial vagin osis (BV) marke r score s toget her. Total score is inter prete d as follo ws: Total score 0-1: Indic ates the absen ce of BV. Total score 2: Indet ermin ate for BV. Addit ional clini pebbles data shoul d be evalu ated to estab evelyn a diagn osis. Total score 3-6: Indic ates the prese nce of BV. Not Available [facility] ([facility]) [address] [facility], [place], [address], 01/25/2024 06:17:34 01/23/20 24 01/24/2024 NUSWA B VAGIN ITIS PLUS (VG+) fide albicans, NUPUR NEGATI VE negati ve Not Available [facility] ([facility]) [address] [place], [address], 01/25/2024 06:17:34 01/23/20 24 01/24/2024 NUA B VAGIN ITIS PLUS (VG+) fide glabrata, NUPUR NEGATI VE negati ve Not Available [facility] ([facility]) [address] [place], [address], 01/25/2024 06:17:34 01/23/2001/25/20[facility] ([facility]G+) trich vag by NUPUR NEGATI VE negati ve Not Available [facility] ([facility]) [address] [place], [address], 01/25/2024 06:17:34 01/23/2001/25/2024 NUA B VAGIN ITIS PLUS (VG+) chlamydia trachomatis, NUPUR NEGATI VE negati ve Not Available [facility] ([facility]) [address] [place], [address], 01/25/2024 06:17:34 01/23/20 24 01/25/2024 NUA B VAGIN ITIS PLUS (VG+) neisseria gonorrhoeae, NUPUR NEGATI VE negati ve Not Available [facility] ([facility]) [address] [place], [address], 01/25/2024 06:17:34 01/23/2001/25/2024 URINE CULTU REMARCIN NE urine culture, routine FINAL REPORT Not Available [facility] ([facility]) [address] [place], [address], 01/25/2024 06:17:36 01/23/2001/25/2024 URINE CULTU REMARCIN NE result 1 COMMEN T Mixed uroge nital samy Less than 10,00 0 colon ies/m L Not Available [facility] ([facility]) [address] [facility], [place], [address], 01/25/2024 06:17:36 01/23/20 24 01/26/2024 HSV 1/2 PCR hsv-1 DNA NEGATI VE negati ve Not Available [facility] ([facility]) [address] [facility], [place], [address], 01/26/2024 06:18:46 01/23/20 24 01/26/2024 HSV 1/2 PCR hsv-2 DNA POSITI VE negati ve abnormal This test was devel oped and its perfo rmanc e keila cteri stics deter mined by [employer] atori es. It has not been clear ed or appro som by the U.S. Food and Drug Admin istra tion. The FDA has deter mined that such clear ance or appro benito is not neces tiffanie. This test is used for clini pebbles purpo ses. It shoul d not be regar ded as inves tigat ional or resea rch. Not Available [facility] ([facility]) [address] [facility], [place], [address], 01/26/2024 06:18:46 01/23/20 24 01/27/2024 HSV 1/2 PCR hsv-1 DNA NEGATI VE negati ve Not Available [facility] ([facility]) [address] [place], [address], 01/27/2024 15:17:35 01/23/20 24 01/27/2024 HSV 1/2 PCR hsv-2 DNA NEGATI VE negati ve This test was devel oped and its perfo rmanc e keila cteri stics deter mined by [employer] [facility]. It has not been clear ed or appro som by the U.S. Food and Drug Admin istra tion. The FDA has deter mined that such clear ance or appro benito is not neces tiffanie. This test is used for clini pebbles purpo ses. It shoul d not be regar ded as inves tigat ional or resea [facility]. Not Available [facility] ([facility]) [address] [facility], [place], [address], 01/27/2024 15:17:35 01/23/20 24 01/24/2024 INTER PRETA TION: interpretati on: Commen t Not infec gurjit with HCV unles s early or acute infec tion is suspe cted (whic h may be delay ed in an immun ocomp romis ed indiv idual ), or other evide nce exist s to indic ate HCV infec tion. Not Available [facility] ([facility]) [address] [facility], [place], [address], 01/27/2024 15:17:37 01/23/20 24 01/24/2024 HCV ANTIB JUSTIN RFX TO QUANT PCR HCV Ab NON REACTI VE nonrea ctive Not Available [facility] ([facility]) [address] [facility], [place], [address], 01/27/2024 15:17:37 01/23/20 24 01/24/2024 CT/GC NUPUR, PHARY NGEAL C. trachomatis, NUPUR, pharyn NEGATI VE negati ve Not Available [facility] ([facility]) [address] [place], [address], 01/27/2024 15:17:38 01/23/20 24 01/24/2024 CT/GC NUPUR, PHARY NGEAL N. gonorrhoeae, NUPUR, pharyn NEGATI VE negati ve Not Available [facility] ([facility]) [address] [place], [address], 01/27/2024 15:17:38 01/23/20 24 01/24/2024 HBSAG SCREE N HBsAg screen NEGATI VE negati ve Not Available [facility] ([facility]) [address] [place], [address], 01/27/2024 15:17:40 01/23/20 24 01/24/2024 RPR, RFX QN RPR/C ONFIR M TP RPR NON REACTI VE nonrea ctive Not Available [facility] ([facility]) [address] [facility], [place], [address], 01/27/2024 15:17:41 01/23/2001/24/2024 HIV AB/P2 4 AG WITH REFLE X HIV Ab/P24 Ag screen NON REACTI VE nonrea ctive HIV-1 /HIV- 2 antib odies and HIV-1 p24 antig en were NOT detec gurjit. There is no labor atory evide nce of HIV infec tion. HIV Negat kayla Not Available [facility] ([facility]) [address] [facility], [place], [address], 01/27/2024 15:17:42 01/23/2001/23/2024 urina lysis , dipst ick Leukocytes Trace Not Available In-Offi ce Order Internal Use Only DO Not Attach Compendium DO Not Attach Compendium, Do Not Delete/merge, [id number] 01/23/2024 16:24:31 01/23/2001/23/2024 urina lysis , dipst ick Nitrite negati ve Not Available In-Office Order Internal Use Only DO Not Attach Compendium DO Not Attach Compendium, Do Not Delete/merge, [id number] 01/23/2024 16:24:31 01/23/2001/23/2024 urina lysis , dipst ick Urobilinogen .2 Not Available In-Of fice Order Internal Use Only DO Not Attach Compendium DO Not Attach Compendium, Do Not Delete/merge, [id number] 01/23/2024 16:24:31 01/23/20 24 01/23/2024 urina lysis , dipst ick Protein Negati ve Not Available In-Office Order Internal Use Only DO Not Attach Compendium DO Not Attach Compendium, Do Not Delete/merge, [id number] 01/23/2024 16:24:31 01/23/2001/23/2024 urina lysis , dipst ick pH 6.0 Not Available In-Office Order Internal Use Only DO Not Attach Compendium DO Not Attach Compendium, Do Not Delete/merge, [id number] 01/23/2024 16:24:31 01/23/2001/23/2024 urina lysis , dipst ick Blood Modera te Not Available In-Office Order Internal Use Only DO Not Attach Compendium DO Not Attach Compendium, Do Not Delete/merge, [id number] 01/23/2024 16:24:31 01/23/2001/23/2024 urina lysis , dipst ick Specific Bureau 1.025 Not Available In-Off ice Order Internal Use Only DO Not Attach Compendium DO Not Attach Compendium, Do Not Delete/merge, [id number] 01/23/2024 16:24:31 01/23/20 24 01/23/2024 urina lysis , dipst ick Ketone Negati ve Not Available In-Office Order Internal Use Only DO Not Attach Compendium DO Not Attach Compendium, Do Not Delete/merge, [id number] 01/23/2024 16:24:31 01/23/20 24 01/23/2024 urina lysis , dipst ick Bilirubin Negati ve Not Available In-Office Order Internal Use Only DO Not Attach Compendium DO Not Attach Compendium, Do Not Delete/merge, [id number] 01/23/2024 16:24:31 01/23/2001/23/2024 urina lysis , dipst ick Glucose Negati ve Not Available In-Office Order Internal Use Only DO Not Attach Compendium DO Not Attach Compendium, Do Not Delete/merge, [id number] 01/23/2024 16:24:31 01/23/2001/23/2024 urina lysis , dipst ick Appearance Slight ly Cloudy Not Available In-Office Order Internal Use Only DO Not Attach Compendium DO Not Attach Compendium, Do Not Delete/merge, [id number] 01/23/2024 16:24:31 01/23/20 24 01/23/2024 urina lysis , dipst ick Color Yellow Not Available In-Office Order Internal Use Only DO Not Attach Compendium DO Not Attach Compendium, Do Not Delete/merge, [id number] 01/23/2024 16:24:31 Result Notes None recorded. Problems No Known Problems Procedures Surgical History Date Name Laterality Status Provider Name and Address Organization Details Recorded Time 07/26/2012 Date of Last Pap Smear completed Monica Jc MA [facility] 03/02/2015 09:23:41 Imaging Results None recorded. Procedure Notes None recorded. Medical Equipment None Reported. Allergies No known drug allergies Medications Name Sig Start Date Stop Date Status Note LastModified by Organization Details LastModified Time acyclovir 400 mg tablet TAKE 1 TABLET BY MOUTH EVERY 8 HOURS FOR 7 DAYS active Not Available Not Available No t Available amoxicillin 875 mg tablet 01/22 completed Not Available Not Available Not Available Ear Drops (carbamide peroxide) 6.5 % 01/22 completed Not Available Not Available Not Available amoxicillin 875 mg-potassium clavulanate 125 mg tablet TAKE 1 TABLET BY MOUTH EVERY 12 HOURS active Not Available Not Available No t Available nitrofuranto in monohydrate/ macrocrystal s 100 mg capsule TAKE 1 CAPSULE BY MOUTH EVERY 12 HOURS FOR 5 DAYS active Not Available Not Available No t Available RhoGAM Ultra-Filter ed PLUS 1,500 unit (300 mcg) intramuscula r syringe one ml im 01/22 completed Not Available Not Available Not Available Vitals Date Recorded Body weight Provider Name an d Address Organization Details Last Updated DateTime 01/22/2018 495010.225767 g Tyson Self MD Attn: [address] [place], [address], [facility] 01/22/2018 14:52:25 Date Recorded Body height Body mass index (BMI) Systolic And Diastolic Provider Name and Address Organization Details Last Updated DateTime 01/22/2018 152.4 cm 43.2 kg/m2 148/74 mm[Hg] Monica Jc MA [facility] 01/22/2018 14:37:41 Date Recorded Body height Body mass index (BMI) Body weight Respiratory rate Oxygen saturation Oxygen saturation in Arterial blood by Pulse oximetry Body temperature Heart rate Systolic And Diastolic Provider Name and Address Organization Details Last Updated DateTime 152.4 cm 28.7 kg/m2 97886.9 2 g 18 /min 99 % 99 % 98.2 [degF] 94 /min 116/83 mm[Hg] [employer] [facility] 4 16:08:22 Date Recorded Body weight Provider Name an d Address Organization Details Last Updated DateTime 02/01/2018 424330.72526 g Tyson Self MD Attn: [address] [place], [address] 02/01/2018 14:57:18 Date Recorded Body height Body mass index (BMI) Systolic And Diastolic Provider Name and Address Organization Details Last Updated DateTime 02/01/2018 152.4 cm 43.2 kg/m2 138/80 mm[Hg] Adeola Frederick MA [facility] 02/01/2018 14:40:32 Date Recorded Body weight Provider Name an d Address Organization Details Last Updated DateTime 02/12/2018 300009.196569 g Tyson Self MD Attn: [address] [place], [address], [facility] 02/12/2018 12:05:42 Date Recorded Body height Body mass index (BMI) Systolic And Diastolic Provider Name and Address Organization Details Last Updated DateTime 02/12/2018 152.4 cm 43.7 kg/m2 134/64 mm[Hg] Monica Jc MA [facility] 02/12/2018 12:01:26 Date Recorded Body weight Provider Name an d Address Organization Details Last Updated DateTime 02/19/2018 564827.917289 g Tyson Self MD Attn: [address] [place], [address] 02/19/2018 11:08:27 Date Recorded Body height Body mass index (BMI) Systolic And Diastolic Provider Name and Address Organization Details Last Updated DateTime 02/19/2018 152.4 cm 44.3 kg/m2 132/62 mm[Hg] Monica Jc MA [facility] 02/19/2018 10:54:57 Social History Question Answer Notes LastModified by Organizat ion Details LastModified Time Tobacco Smoking Status Former Smoker [employer] null, [facility] 01/23/2024 16:06:17 What Is Your Level Of Caffeine Consumption? Heavy Information not available 01/23/2024 What Was The Date Of Your Most Recent Tobacco Screening? 01/23/2024 Information not available 01/23/2024 How Many Children Do You Have? 1 Information not available 03/02/2015 What Is Your Relationship Status? Single Information not available 03/02/2015 How Much Tobacco Do You Smoke? 0.5 PPD Information not available 08/09/2017 Has Tobacco Cessation Counseling Been Provided? Yes Information not available 01/23/2024 On What Date Was Tobacco Cessation Counseling Provided? 01/23/2024 Information not available 01/23/2024 How Many Years Have You Smoked Tobacco? 9 Information not available 08/09/2017 Sex: Female Functional Status Question Answer Note LastModified by Organizat ion Details LastModified Time Do you use any illicit or recreational drugs? Yes meth (01/23/24) Information not available 01/23/2024 Do you or have you ever used any other forms of tobacco or nicotine? Yes Information not available 01/23/2024 What is your level of alcohol consumption? None Information not available 01/23/2024 Do you or have you ever used e-cigarettes or vape? Current user of electronic cigarettes vapes Information not available 01/23/2024 Mental Status None recorded. Family History Nothing Reported Notes:Other CA Mother Medical History Condition Response Other N High Blood Pressure N Breast Cancer N Thyroid Problems N Kidney or Bladder Problems N GI Problems N Depression N Blood Clots N Lung Disease N Acne N Breast Problem N Eating Disorder N Anemia N Anesthesia Complications N Headaches/Migraines N Anxiety Disorder N Diabetes N Ovarian Cancer N Muscle, Joint, or Bone Problems N Blood Transfusions N Seizures/Epilepsy N Polyps N Infertility N Acid Reflux (GERD) N Cancer N Abuse/Domestic Violence N Asthma N Endometriosis N High Cholesterol N Hepatitis N Liver Disease N Heart Disease N Pre-Eclampsia N Osteoporosis N Gynecological History Statement/Question Response STIs/STDs Date of Last Pap Smear 07/26/2012 Current Control Method None Date of LMP 01/12/2024 LMP Approximate Obstetrics History GPAL:G 4 P 2 1 2 2 Type Value Full Term 2 Induced 1 Spontaneous 1 Premature 1 Living 2 Total 4 Immunizations Vaccine Type Date Status Note Provider Nam e and Address Organization Details Recorded Time Tdap 01/22/2018 completed Not Available [facility] 05/04/2019 02:49:49 Past Encounters Encounter ID Performer Location Encounter Start Date Encounter Closed Date Diagnosis/Indication Diagnosis SNOMED-CT Code Diagnosis ICD10 Code Diagnosis Note [id number] MD [facility] ([facility] [address]) [address] [place] [address] 08/09/2017 11:05:29 08/11/2017 16:09:31 Body mass index 30+ - obesity 783496461 Z68.36 Normal 5678385 2 Z34.91 [id number] MD Rosalia Ballard 12 OB [address] [facility] [address] [place] [address] 09/07/2017 12:10:31 09/13/2017 14:31:59 Body mass index 30+ - obesity 896138194 Z68.37 Normal 1032914 2 Z34.91 [id number] MD Rosalia Ballard 14 OB [address] [facility] [address] [place] [address] 10/16/2017 14:16:48 10/17/2017 16:24:25 Normal 18343828 Z34.91 Past pregn muna history of stillbirth 131652519 Z87.59 [id number] MD Rosalia Ballard 14 OB [address] [facility] [address] [place] [address] 11/16/2017 10:54:17 11/21/2017 13:26:39 Normal 17806946 Z34.91 History of loss 303752008 Z87.59 [id number] MD Rosalia Ballard 14 OB [address] [facility] [address] [place] [address] 12/07/2017 10:33:56 12/08/2017 13:05:36 RhD negative 514746959 Z01.83 Normal 3456780 2 Z34.91 [id number] MD Rosalia Ballard 12 OB [address] [place] [address] 12/25/2017 13:51:32 12/27/2017 12:24:08 Normal 63488608 Z34.91 Past pregn muna history of stillbirth 186349915 Z87.59 [id number] MD Rosalia Ballard 14 OB [address] [place] [address] 01/08/2018 10:56:30 01/09/2018 16:55:32 Normal 90678293 Z34.91 History of loss 021082173 Z87.59 [id number] MD Rosalia Ballard 12 OB [address] [place] [address] 01/22/2018 14:17:49 01/25/2018 10:04:28 Normal 27801189 Z34.91 Administra tion of diphtheria, pertussis, and tetanus vaccine 361525618 Z23 [id number] MD Rosalia Ballard 14 OB [address] [place] [address] 02/01/2018 14:33:56 02/05/2018 15:54:33 Normal 58664940 Z34.91 [id number] MD Rosalia Ballard 14 OB [address] [place] [address] 02/12/2018 11:52:23 02/12/2018 16:23:31 Normal 92823502 Z34.91 [id number] MD Rosalia Ballard [address] OB [address] [place] [address] 02/19/2018 10:18:25 02/20/2018 11:04:33 Normal 91589020 Z34.91 [id number] MD Rosalia Sahni 14 IM [address] [place] [address] 01/23/2024 15:36:32 01/25/2024 12:34:16 Venereal disease screening 293807012 Z11.3 -Patient agreeable to vaginal and oral STD testing, HIV, syphilis, hepatitis b and c testing, and HSV testing.-P atient has lesions on right labia that are consistent with herpes genitalia presentati on. Lesions were swabbed to test for HSV. Patient agreeable to treatment with acyclovir 400mg q8 hours for 7 days. CLOTH HANDLER discussed possible side effects and benefits of medication .-CLOTH HANDLER discussed importance of safe sex practices including condom use to prevent STDs and unplanned and to limit number of sexual partners to reduce exposure to STDs.-CLOTH HANDLER provided safer sex care instructmiladys vernon. Urinary symptoms 6894163 08 R39.9 -UA positive for leukocytes -Urine culture ordered-Pa tient agreeable to treatment with macrobid 100mg BID for 5 days. CLOTH HANDLER advised patient to consume OTC probiotic or yogurt while on antibiotic therapy.-P atient advised to return to clinic if symptoms worsen or do not improve.-C are instructio ns provided Health Concerns Section Related Observation LastModified by Organization Detai ls LastModified Time None Recorded Concern Status LastModified by Organization Details LastModified Time None Recorded Advance Directives Directive None Recorded Payers Insurance Date Sequence Insurance Name Policy Number Policy Marin Covered Member ID Marin Member ID Guarantor Name 01/23/2024 1 [employer] (MEDICAID HMO) Fela Lo [id number] Fela Lo 01/23/2024 1 [facility] - DOS PRIOR TO 2020 (MEDICAID REPLACEMENT - HMO) Fela Lo [id number] Fela Lo 01/24/2024 1 [employer] [facility] - DOS ON OR AFTER 2020 (MEDICAID REPLACEMENT - HMO) Fela Lo [id number] Fela Lo 01/23/2024 1 [facility] (MEDICAID HMO) [id number] Fela Lo [id number] Fela Lo 01/23/2024 1 [place] [facility] Fela Lo [id number] Fela Lo 01/23/2024 1 [place] [facility] Fela Lo [id number] Fela Lo 01/23/2024 1 [place] [facility] Fela Lo [id number] Fela Lo Notes Date Note Type Note Provider Name and Address Organization Details Recorded Time 01/23/2024 text/html Patient presents to the clinic with acute concerns for STD screening. Patient is unsure if she has a primary care provider currently. STD screening-Raz dai reports history of chlamydia at age 17. She underwent treatment and had a negative test of cure.-Patient reports recent exposure to genital herpes. Patient believes she has herpes currently.-Annalise allan reports history of 25 sexual partners male and female.-Patient reports she is having vaginal, oral, and anal.-Patient reports burning with urination-Raz dai reports vaginal itching, visible 'bumps' to her vaginal area.-Denies having vaginal discharge.-Annalise allan does not use control currently. She avoids having sex during ovulation.-Annalise allan reports she is not using condoms currently. KRISTINA FIGUEROA, ANA-DEYSI Attn: Accounting,[address] [place], [address], [facility] 01/24/2024 16:12:57 OBGyn Episode Ob Episode Information Episode Created Date Number of Fetuses Patient Bloodtype Patient rh Status Prepregnancy Weight lbs Domestic Partner Domestic Partner Phone Father Name Client Services Account Manager Status 03/02/20 15 1 CLOSED Fetus Data First Name Last Name Admitted to NICU Weight (g) Sex Living Outcome Pediatric Complications Fetus ID Race Codes Race Delivery Type 2863.29 95 M Full Term [id number] Vaginal Telly Calculation Initial Telly Date Initial Exam Date Initial Exam Provider Initial Ultrasound Date Last Menstrual Period Date Ultra Sound Weeks Gestation 0 Eighteen To Twenty Week Telly Update Ultra Sound Date Fundal Height At Umbil Quickening Date Ultra Sound Latest Weeks Gestation Final Telly Confirmed By Final Telly Confirmed Date Final Telly Date Ultra Sound Latest Days Gestation 0 0 Menstrual History Last Menstrual Date Menses Monthly On Bcp Conception Prior Menses Frequency Hcg Plus Date Menarche Onset Age Delivery Information Delivery Date Delivery Type Labor Anesthesia Weeks Gestation Incision Type Labor Labor Length Hrs Delivered By Post Complications Tubal Sterilization Discharge Date Comments 1 Regional-Ep idural GT Discharge Information Feeding Method Contraceptive Method Maternal HG B and HCT Levels Ob Episode Information Episode Created Date Number of Fetuses Patient Bloodtype Patient rh Status Prepregnancy Weight lbs Domestic Partner Domestic Partner Phone Father Name Client Services Account Manager Status 08/10/19 18 1 B Negative [facility] CLOSED Fetus Data First Name Last Name Admitted to NICU Weight (g) Sex Living Outcome Pediatric Complications Fetus ID Race Codes Race Delivery Type Armond Winkler shawna false 2466.40 63 M true Full Term [id number] White Vaginal Telly Calculation Initial Telly Date Initial Exam Date Initial Exam Provider Initial Ultrasound Date Last Menstrual Period Date Ultra Sound Weeks Gestation 03/03/2018 08/09/2017 08/09/2017 05/25/2017 10 Eighteen To Twenty Week Telly Update Ultra Sound Date Fundal Height At Umbil Quickening Date Ultra Sound Latest Weeks Gestation Final Telly Confirmed By Final Telly Confirmed Date Final Telly Date Ultra Sound Latest Days Gestation 09/29/19 18 18 nbendorf 02/26/2018 03/01/20 18 1 Pre-mukesh Flowsheet Flowsheet Date 08/09/2017 Elizalde Score Blood Edema Fundus Height Fundus Units Glucose Ketones Leukocytes Nitrite Labor Signs Protein Cervic Dilation Cervic Effacement Cervic Station 10 wks 0cm -4 Type Weight in lbs Pre/Post Dialysis Refused 184.071180602564 BP Diastolic BP Location Tested BP Systolic BP Type 64 122 sitting Fetus Heart Rate Present A Absent Fetus Movement Comments Term delivery in 2010, 31 we ek stillbirth 2012 - at [facility] ( will get reports)no fht audible today, had an US at [facility] now that showed IUP Flowsheet Date 09/07/2017 Elizalde Score Blood Edema Fundus Height Fundus Units Glucose Ketones Leukocytes Nitrite Labor Signs Protein Cervic Dilation Cervic Effacement Cervic Station none Type Weight in lbs Pre/Post Dialysis Refused 192.703921537975 BP Diastolic BP Location Tested BP Systolic BP Type 76 102 sitting Fetus Heart Rate Present A 143 Present Fetus Movement Comments 15 weeks doing well. Will ge t US in 3 weeks, see me in 4.Second baby was induced after IUFD diagnosis ( no FM for 3days - got US)WIll arrange a HROB consult after US Flowsheet Date 10/16/2017 Elizalde Score Blood Edema Fundus Height Fundus Units Glucose Ketones Leukocytes Nitrite Labor Signs Protein Cervic Dilation Cervic Effacement Cervic Station none 20 wks Type Weight in lbs Pre/Post Dialysis Refused 202.110649714224 BP Diastolic BP Location Tested BP Systolic BP Type 56 102 sitting Fetus Heart Rate Present A 154 Present Fetus Movement A Yes Comments doing well, Boy on USwill ar range a HROB consult for 31 week demis hx. Flowsheet Date 11/16/2017 Elizalde Score Blood Edema Fundus Height Fundus Units Glucose Ketones Leukocytes Nitrite Labor Signs Protein Cervic Dilation Cervic Effacement Cervic Station none 24 cm Type Weight in lbs Pre/Post Dialysis Refused 212.24104133950 BP Diastolic BP Location Tested BP Systolic BP Type 58 96 sitting Fetus Heart Rate Present A 148 Present Fetus Movement A Yes Comments doing well. Had HROB visit, will start serial growth scans as reccomended.sugar test next time Flowsheet Date 12/07/2017 Elizalde Score Blood Edema Fundus Height Fundus Units Glucose Ketones Leukocytes Nitrite Labor Signs Protein Cervic Dilation Cervic Effacement Cervic Station none 26 cm none neg Type Weight in lbs Pre/Post Dialysis Refused 212.527198522824 BP Diastolic BP Location Tested BP Systolic BP Type 72 108 sitting Fetus Heart Rate Present A 140 Present Fetus Movement A Yes Comments doing well, US growth scan t omorrow, ding sugar test today Flowsheet Date 12/25/2017 Elizalde Score Blood Edema Fundus Height Fundus Units Glucose Ketones Leukocytes Nitrite Labor Signs Protein Cervic Dilation Cervic Effacement Cervic Station none 30 wks Type Weight in lbs Pre/Post Dialysis Refused 218.557958695065 BP Diastolic BP Location Tested BP Systolic BP Type 52 98 sitting Fetus Heart Rate Present A 144 Present Fetus Movement A Yes Comments doing well, 3 hr sugar test todayf/u US after next visit, NSTs to start weekly after that as well due to stillbirth hx. Flowsheet Date 01/08/2018 Elizalde Score Blood Edema Fundus Height Fundus Units Glucose Ketones Leukocytes Nitrite Labor Signs Protein Cervic Dilation Cervic Effacement Cervic Station Type Weight in lbs Pre/Post Dialysis Refused 219.942744591772 BP Diastolic BP Location Tested BP Systolic BP Type 65 108 sitting Fetus Heart Rate Present Fetus Movement Comments Flowsheet Date 01/22/2018 Elizalde Score Blood Edema Fundus Height Fundus Units Glucose Ketones Leukocytes Nitrite Labor Signs Protein Cervic Dilation Cervic Effacement Cervic Station none 33 cm none trace Type Weight in lbs Pre/Post Dialysis Refused 221.894521656556 BP Diastolic BP Location Tested BP Systolic BP Type 74 148 sitting Fetus Heart Rate Present A 148 Present Fetus Movement A Yes Comments doing well, GBS done today, weekly NSTs with hx of 31 week stillbirth.(2012) Flowsheet Date 02/01/2018 Elizalde Score Blood Edema Fundus Height Fundus Units Glucose Ketones Leukocytes Nitrite Labor Signs Protein Cervic Dilation Cervic Effacement Cervic Station none 34 cm Type Weight in lbs Pre/Post Dialysis Refused 221.651304236239 BP Diastolic BP Location Tested BP Systolic BP Type 80 138 sitting Fetus Heart Rate Present A 148 Present Fetus Movement A Yes Comments Had reactive NST on L&D just before this visit ( for stillborn hx - 2012)doing well otherwise - cervix check next time Flowsheet Date 02/12/2018 Elizalde Score Blood Edema Fundus Height Fundus Units Glucose Ketones Leukocytes Nitrite Labor Signs Protein Cervic Dilation Cervic Effacement Cervic Station none 35 cm none trace 2cm 50% -4 Type Weight in lbs Pre/Post Dialysis Refused 223.33454378769 BP Diastolic BP Location Tested BP Systolic BP Type 64 134 sitting Fetus Heart Rate Present A 150 Present Fetus Movement A Yes Comments doing well, weekly nsts have been goodcervix soft, but baby still high Flowsheet Date 02/19/2018 Elizalde Score Blood Edema Fundus Height Fundus Units Glucose Ketones Leukocytes Nitrite Labor Signs Protein Cervic Dilation Cervic Effacement Cervic Station none 36 cm none neg Type Weight in lbs Pre/Post Dialysis Refused 226.854459963063 BP Diastolic BP Location Tested BP Systolic BP Type 62 132 sitting Fetus Heart Rate Present A 145 Fetus Movement A Yes Comments Plan 39 week induction this Monday Menstrual History Last Menstrual Date Menses Monthly On Bcp Conception Prior Menses Frequency Hcg Plus Date Menarche Onset Age 0205/25/2017 Delivery Information Delivery Date Delivery Type Labor Anesthesia Weeks Gestation Incision Type Labor Labor Length Hrs Delivered By Post Complications Tubal Sterilization Discharge Date Comments 8 Induce d Regional-Ep idural 38.6 oc renae 02/23/2018 Discharge Information Feeding Method Contraceptive Method Maternal HG B and HCT Levels Breast
--- OUTSIDE RECORDS SUMMARY | 2024-10-31 17:36 | XMS_ITS | Clinical Summary ---
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 Gender Identity Not on file Sexual Orientation Not on file Obstetrics History Para Term AB IAB SAB Ectopic Multiple Livin g Live Births 4 3 2 1 1 1 0 0 2 2 Date Outcome GA Total Labor Labor/2nd/3rd Weight Sex Type Anes PTL Polina A1 A5 Name Clin 2010 Term 40w 0d M N Livin g Complications:None 2012 31w 0d 2013 IAB 7w0 d 018 Term 38w 6d 6h 15m 4h 20m/1h 50m/0h 05m 2.492 kg (5 lb 7.9 oz) M Vag-S pont Epidur al N Livin g 8 9 ANGELIQUE JOHNSON,KATHARINE MICHAEL N Kirk Carlisle MD Complications:None Delivery Location:This Facil ity ([facility]) Last Filed Vital Signs Vital Sign Reading [...] 12/14/2022 2:31 AM CDT Plan of Treatment Health Maintenance Due Date Last Done Comments Cervical Cancer Screening 1993 Depression Screening 1993 Hepatitis C Screening 1993 Regular Well Visit/Exam 18-64 2011 Pneumococcal vaccine <65 (1 of 2 - PCV) 2012 Influenza Vaccine (Season Ended) 2024 DTaP/Tdap/Td Vaccine (8 - Td or Tdap) 01/23/2028 01/22/2018, 07/09/2007, 05/09/1997, Additional history exists Hepatitis B Screening Completed 1993, 994 HPV Vaccines Completed 12/08/2009, 07/09/2007 Insurance IDPA [facility] [facility]ID [facility] [employer] [facility] IDPA Advance Directives For more information, please contact: [phone] * Full Code (Latest Code Status on [...] in case of cardiopulmonary arrest Care Teams Hairspring Fabrication Supervisor Relationship Specialty Start Date End Date No, Physician PCP - General 09/14/17
[2024-10-31 17:38] VITALS: BP 120/70; PULSE 93; RESP 20; TEMP 36.5; O2SAT 100
--- NOTE | 2024-10-31 18:18 | ED_ITS ---
HPI - Skin/Abscess/Foreign Bdy General Chief complaint: Skin/Abscess/Foreign Body Stated complaint: poison chan or sumac Time Seen by Provider: 10/31/24 17:52 Source: patient and RN notes reviewed Mode of arrival: ambulatory Limitations: no limitations History of Present Illness HPI narrative: Patient presents today complaining of a severely pruritic rash to the bilateral legs and right face x4 days. She has been using calamine lotion and Zanfel without improvement. She believe she has poison chan but is unsure where she may have gotten it. Patient states she had severe poison chan a few years ago and was treated with prednisone, had some rebound poison chan and needed to be treated again. Related Data Allergies Allergy/AdvReac Type Severity Reaction Status Date / Time No Known Allergies Allergy Verified 10/31/24 17:56 [facility] Past Medical History Medical History Anxiety History of dental problems Social History Social History Smoking packs per day: 0.5 Smoking cigarettes per day: 10.0 Years smoked: 15 Smoking pack-years: 7.50 Smoking status: Current every day smoker Alcohol intake: former Substance use type: marijuana Other substance usage details: occasional Living arrangements: with family Gender identity (if verbalized by the patient): Female Comments At time of signature, I have reviewed and agree with nursing past medical, surgical, social and family history unless otherwise noted. Please see nursing chart for further information. There is no relevant family history pertinent to the presenting complaint Exam Narrative: GENERAL: Well-appearing, well-nourished, and in no acute distress. HEAD: Normocephalic, atraumatic. EYES: EOMI. No redness or drainage. Conjunctivae normal. ENT: Mucous membranes pink and moist. NECK: Normal AROM. CHEST: No respiratory distress. EXTREMITIES: Normal range of motion. No edema. SKIN: Warm, dry. Capillary refill normal. Normal skin turgor. Large patches of erythematous maculopapular rash to the bilateral thighs and left calf as well as a large area to the right cheek and chin, consistent with poison chan. No induration, crusting, or active drainage. NEURO: No focal deficits. Alert and oriented x3. Gait steady. PSYCH: Normal affect. No signs of depression or anxiety. Course Course Level of Care: Express Care Visit Vital Signs Vital signs: Vital Signs Temperature 97.7 F 10/31/24 17:38 Pulse Rate 93 10/31/24 17:38 Respiratory Rate 20 10/31/24 17:38 Blood Pressure 120/70 10/31/24 17:38 Pulse Oximetry 100 10/31/24 17:38 Oxygen Delivery Room Air 10/31/24 17:38 Temperature 97.7 F 10/31/24 17:38 Pulse Rate 93 10/31/24 17:38 Respiratory Rate 20 10/31/24 17:38 Blood Pressure 120/70 10/31/24 17:38 Pulse Oximetry 100 10/31/24 17:38 Oxygen Delivery Room Air 10/31/24 17:38 Reviewed MDM - Skin/Abscess/Foreign Bdy MDM Narrative Medical decision making narrative: 29-year-old female patient severely pruritic rash to the legs and face. She has tried some treatment without improvement. Exam consistent with contact dermatitis, likely poison chan. Will treat with long tapering dose of prednisone. Recommend starting an antihistamine as well. Patient has also been instructed to stop scratching so as not to introduce bacteria into her rash. Vital signs stable. Anticipatory guidance given. Critical Care Time Critical Care Time Critical Care Time: No Discharge Plan Discharge Clinical Impression: Contact dermatitis Qualifiers: Contact dermatitis type: unspecified Contact dermatitis trigger: unspecified trigger Qualified Code(s): L25.9 - Unspecified contact dermatitis, unspecified cause Patient Disposition: Home Condition: Stable Instructions: Contact Dermatitis (DC) Additional Instructions: Please take the prednisone as prescribed until gone. Start a daily antihistamine such as Zyrtec, Claritin, or Belkys for the itching. Follow-up with your PCP in 1 week if symptoms are not improving. Patient Language: Occitan Prescriptions: New prednisone 10 mg tablet See Rx Instructions .ROUTE .COMPLEX Qty: 42 0RF Rx Instructions: 5 tabs daily x3 days,then 4 tabs daily x3 days,then 3 tabs daily x3 days,then 2 tabs daily x3 days Follow-up/Referrals: PHYSICIAN,STATE INSPECTOR [Primary Care Provider] - Time of Disposition: 18:18
== END 2024-10-31 18:20 | disposition home or self-care (01) ==
PROVIDERS: Emergency Provider Nurse Practitioner
DX: L23.7 Allergic contact dermatitis due to plants, except food (principal); F17.210 Nicotine dependence, cigarettes, uncomplicated
CPT/HCPCS: 99213; G0463